=== PATIENT | female | born 1990 | race Caucasian/White ===

== ENCOUNTER 2016-05-19 06:59 | Inpatient (IN) | payer OTHER ==
[2016-05-19] MEDS ORDERED: Ampicillin 2 GM in Sodium Chloride 0.9% 100 ML IV ONE (08:06)
[2016-05-19] MEDS: Lactated Ringers 1,000 ML IV SCH ×2 (08:35→15:14)
[2016-05-19] MEDS ORDERED: Oxytocin 10 UNIT in Sodium Chloride 0.9% 1,000 ML IV SCH (09:15)
[2016-05-19] MEDS: Ampicillin 1 GM in Sodium Chloride 0.9% 50 ML IV SCH ×3 (12:16→20:38)
--- NOTE | 2016-05-19 17:27 | PCM.LDHP ---
L&D History of Present Illness - General Date of Service: 05/19/16 Admit Problem/Dx: Patient Status Order with Admit Dx/Problem 05/19/16 07:11 Admission Status [Patient Status] [ADT] Routine 05/19/16 13:27 Admission Status [Patient Status] [ADT] Routine Admission Diagnosis/Problem Admission Diagnosis/Problem Source of Information: Patient History Limitations: Reports: No limitations - History of Present Illness Introduction:: 25 yo female,primigrivida admitted for induction of labor,post . She is GBS +. No tothe medical problems. 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 L&D Exam - Exam Exam: See Below - Vital Signs Vital Signs: Last Vital Signs Temp 97.8 F 05/19/16 13:31 Pulse 70 05/19/16 13:31 Resp 20 05/19/16 13:31 BP 128/85 05/19/16 13:31 Pulse Ox 97 05/19/16 13:31 Weight: 75.75 kg - OB Specific Contraction Duration (sec): 30-50 Contraction Frequency (min): 2-3 Contraction Intensity: Moderate - Lane Score Lane Score Cervix Position: Posterior Lane Score Consistency: Medium Lane Score Dilation: 3-[address] Score 's Station: -1 ,0 - Exam Quality Assessment: No: supplemental oxygen General: alert, oriented, cooperative. No: severe distress HEENT: PERRLA Neck: supple Lungs: Clear to auscultation, Normal respiratory effort Cardiovascular: regular rate, regular rhythm Abdomen: normal bowel sounds Rectal Exam: Normal exam Genitourinary: Normal external exam Back Exam: normal inspection, CVA tenderness (L) Extremities: normal inspection Neurological: cranial nerves intact Psychiatric: alert - Problem List (1) Post-dates SNOMED Code(s): 78492947 ICD Code: O48.0 - POST-TERM Status: Acute Current Visit: Yes (2) Elective induction of labor planned SNOMED Code(s): 722213212 ICD Code: [id number] - Status: Acute Current Visit: Yes Problem List Initiated/Reviewed/Updated: Yes Orders Last 24hrs: Active Orders 24 hr Category Date Time Status Admission Status [Patient Status] [ADT] Routine ADT 05/19/16 07:11 Active Admission Status [Patient Status] [ADT] Routine ADT 05/19/16 13:27 Active Communication Order [RC] ASDIRECTED Care 05/19/16 08:09 Active Communication Order [RC] ASDIRECTED Care 05/19/16 08:09 Active Communication Order [RC] ASDIRECTED Care 05/19/16 08:09 Active Communication Order [RC] ASDIRECTED Care 05/19/16 08:09 Active Notify Provider [RC] PRN Care 05/19/16 08:09 Active Notify Provider [RC] STAT Care 05/19/16 08:09 Active Vital Signs [RC] PER UNIT ROUTINE Care 05/19/16 08:09 Active Clear Liquid Diet [DIET] Diet 05/19/16 Dinner Active Ampicillin 1 gm Med 05/19/16 12:30 Active Sodium Chloride 0.9% [Normal Saline] 50 ml IV Q4H Dextrose 5%-0.9% NaCl [Dextrose 5%-Normal Saline] 1,000 Med 05/19/16 17:15 Ordered ml IV ASDIRECTED Oxytocin [Pitocin] 10 unit Med 05/19/16 09:15 Active Sodium Chloride 0.9% [Normal Saline] 1,000 ml IV TITRATE Medication Orders Oxytocin 10 unit/ Sodium (Chloride) 1,001 mls @ 12.01 mls/hr IV TITRATE CHELY; 2 MUNITS/MIN PRN Reason: Protocol Last Titration: 05/19/16 17:00 Dose: 11 munits/min, 66.06 mls/hr Titration: 05/19/16 15:40 Dose: 10 munits/min, 60.06 mls/hr Titration: 05/19/16 15:06 Dose: 8 munits/min, 48.04 mls/hr Titration: 05/19/16 14:34 Dose: 7 munits/min, 42.04 mls/hr Titration: 05/19/16 13:55 Dose: 6 munits/min, 36.03 mls/hr Titration: 05/19/16 13:20 Dose: 5 munits/min, 30.03 mls/hr Titration: 05/19/16 12:15 Dose: 4 munits/min, 24.02 mls/hr Titration: 05/19/16 11:29 Dose: 3 munits/min, 18.01 mls/hr Titration: 05/19/16 10:55 Dose: 2 munits/min, 12.01 mls/hr Titration: 05/19/16 10:05 Dose: 4 munits/min, 24.02 mls/hr Admin: 05/19/16 09:35 Dose: 2 munits/min, 12.01 mls/hr Ampicillin Sodium 1 gm/ Sodium (Chloride) 50 mls @ 100 mls/hr IV Q4H CHELY Last Admin: 05/19/16 16:23 Dose: 100 mls/hr Admin: 05/19/16 12:16 Dose: 100 mls/hr Dextrose/Sodium Chloride (Dextrose 5%-Normal Saline) 1,000 mls @ 125 mls/hr IV ASDIRECTED CHELY Assessment/Plan Comment:: Clear liquid diet. D5 NS.Pitocin.
[2016-05-19] MEDS: Dextrose 5%-0.9% NaCl 1,000 ML IV SCH ×2 (17:30→22:52)
[2016-05-19] MEDS ORDERED: Nalbuphine 10 MG/1 ML Vial IVPUSH PRN (19:35)
[2016-05-19] MEDS ORDERED: Ampicillin 1 GM Vial ONE (20:24)
[2016-05-19] MEDS ORDERED: fentaNYL 300 MCG in Ropivacaine 200 ML EPIDUR ONE (21:59)
[2016-05-19] MEDS ORDERED: fentaNYL 100 MCG/2 ML SDV EPIDUR ONE (21:59)
[2016-05-19] MEDS ORDERED: Promethazine 25 MG/ML SDV IV PRN (22:50)
[2016-05-19] MEDS ORDERED: diphenhydrAMINE 50 MG/ML SDV IVPUSH PRN (22:50)
[2016-05-19] MEDS ORDERED: Ondansetron 4 MG/2 ML SDV IVPUSH PRN (22:50)
[2016-05-19] MEDS ORDERED: Naloxone 0.4 MG/ML SDV IVPUSH PRN (22:50)
[2016-05-19] MEDS ORDERED: ePHEDrine 50 MG/ML SDV IVPUSH PRN (22:50)
[2016-05-19] MEDS ORDERED: Naloxone 0.4 MG in Sodium Chloride 0.9% 100 ML IV PRN (22:50)
[2016-05-20] MEDS ORDERED: hydrOXYzine HCl 50 MG/ML SDV IM PRN ×2 (00:02)
[2016-05-20] MEDS: Ampicillin 1 GM in Sodium Chloride 0.9% 50 ML IV SCH ×3 (00:51→09:41)
[2016-05-20] MEDS ORDERED: Scopolamine 1.5 MG Transdermal Patch TOP ONE (07:27)
[2016-05-20] MEDS ORDERED: Citric Acid/Sodium Citrate Solution 30 ML Cup PO ONE (07:27)
[2016-05-20] MEDS ORDERED: Scopolamine 1.5 MG Transdermal Patch ONE (07:38)
[2016-05-20] MEDS ORDERED: Citric Acid/Sodium Citrate Solution 30 ML Cup ONE (07:39)
[2016-05-20] MEDS ORDERED: Ondansetron 4 MG/2 ML SDV IVPUSH ONE (07:45)
[2016-05-20] MEDS ORDERED: fentaNYL 100 MCG/2 ML SDV IV ONE (07:45)
[2016-05-20] MEDS ORDERED: Morphine PF 10 MG/10 ML SDV EPIDUR ONE (07:45)
[2016-05-20] MEDS ORDERED: CHLOROPROCAINE EPIDUR ONE (07:45)
[2016-05-20] MEDS ORDERED: Lactated Ringers 1,000 ML IV ONE (07:45)
[2016-05-20] MEDS ORDERED: Oxytocin 10 Units/1 ML SDV IV ONE ×2 (07:45)
--- NOTE | 2016-05-20 07:51 | PCM.PNLD ---
Labor Progress Note - VS & Meds Vital Signs: Last Vital Signs Temp 98.0 F 05/20/16 06:43 Pulse 66 05/19/16 22:35 Resp 20 05/19/16 22:35 BP 134/81 05/19/16 22:35 Pulse Ox 100 05/19/16 22:44 Active Medications: Current Medications Diphenhydramine HCl (Benadryl) 25 mg IVPUSH ASDIRECTED PRN PRN Reason: PRURITUS Ephedrine Sulfate (Ephedrine Sulfate) 5 mg IVPUSH ASDIRECTED PRN PRN Reason: HYPOTENSION Hydroxyzine HCl (Vistaril) 25 - 50 mg IM Q6H PRN PRN Reason: PRURITUS Hydroxyzine HCl (Vistaril) 25 - 50 mg IM Q4H PRN PRN Reason: N/V Oxytocin 10 unit/ Sodium (Chloride) 1,001 mls @ 12.01 mls/hr IV TITRATE CHELY; 2 MUNITS/MIN PRN Reason: Protocol Last Titration: 05/20/16 07:03 Dose: 0 munits/min, 0 mls/hr Ampicillin Sodium 1 gm/ Sodium (Chloride) 50 mls @ 100 mls/hr IV Q4H CHELY Last Admin: 05/20/16 04:20 Dose: 100 mls/hr Dextrose/Sodium Chloride (Dextrose 5%-Normal Saline) 1,000 mls @ 125 mls/hr IV ASDIRECTED CHELY Last Admin: 05/19/16 22:52 Dose: 125 mls/hr Naloxone HCl 0.4 mg/ Sodium (Chloride) 101 mls @ 25 mls/hr IV ASDIRECTED PRN PRN Reason: PER ORDER OF ANESTHESIA Nalbuphine HCl (Nubain) 10 mg IVPUSH Q3H PRN PRN Reason: Pain (severe 7-10) Last Admin: 05/19/16 19:50 Dose: 10 mg Naloxone HCl (Narcan) 0.1 mg IVPUSH ASDIRECTED PRN PRN Reason: RESPIRATORY STATUS Ondansetron HCl (Zofran) 4 mg IVPUSH Q6H PRN PRN Reason: NAUSEA/VOMITING Promethazine HCl (Phenergan) 6.25 - 12.5 mg IV Q4H PRN PRN Reason: NAUSEA AND VOMITING Discontinued Medications Ampicillin Sodium (Ampicillin) Confirm Administered Dose 1 gm .ROUTE .STK-MED ONE Stop: 04/10/17 20:25 Last Admin: 05/19/16 20:38 Dose: Not Given Citric Acid/Sodium Citrate (Bicitra Solution) 30 ml PO ONETIME ONE Stop: 05/20/16 07:28 Citric Acid/Sodium Citrate (Bicitra Solution) Confirm Administered Dose 30 ml .ROUTE .STK-MED ONE Stop: 05/20/16 07:40 Ampicillin Sodium 2 gm/ Sodium (Chloride) 100 mls @ 200 mls/hr IV ONETIME ONE Stop: 05/19/16 08:35 Last Admin: 05/19/16 08:44 Dose: 200 mls/hr Lactated Ringer's (Ringers, Lactated) 1,000 mls @ 100 mls/hr IV ASDIRECTED CHELY Last Admin: 05/19/16 15:14 Dose: 100 mls/hr Scopolamine (Transderm-Scop) 1.5 mg TOP ONETIME ONE Stop: 05/20/16 07:28 Scopolamine (Transderm-Scop) Confirm Administered Dose 1.5 mg .ROUTE .STK-MED ONE Stop: 05/20/16 07:39 - Uterine Contractions Uterine Monitoring Mode: External [place] Contraction Frequency (min): 4-5 Contraction Duration (sec): 70-110 Contraction Intensity: Moderate to Strong Uterine Resting Tone: Soft - Monitoring Heart Rate (FHR) Baseline: 120 Heart Rate (FHR) Variability: Moderate (6-25 bmp) Accelerations: Present, 15x15 Decelerations: Late, Variable Strip Review: Category II - Vaginal Exam Dilation (cm): 10 Effacement (Percent): 100 Station: 0 Cervical Position: Anterior Sterile Vaginal Exam Performed By: Maria Fernanda Grey Vaginal Exam Comment: started to push. pt does not have effective pushing. will wait for epidural to wear off a bit. cathed for 400 ml - Labor Progress (Free Text) Labor Progress: Any pushes cause prolonged decelerations.I initially discussed with Dr Gordon- encourage to continue pushing as long as baby tolerates it. Contractions are mild,and spaced out.Any addition of Pit causes late decelerations. Zero station, a bit too high for me to try vacuum. A decition was made to continue with C section for failure to progress with a NRFHT
[2016-05-20] MEDS ORDERED: Azithromycin 500 MG in Sodium Chloride 0.9% 250 ML IV ONE (07:54)
[2016-05-20] MEDS ORDERED: Naloxone 0.4 MG/ML SDV IVPUSH PRN (08:33)
[2016-05-20] MEDS ORDERED: diphenhydrAMINE 50 MG/ML SDV IVPUSH PRN (08:33)
[2016-05-20] MEDS ORDERED: ePHEDrine 50 MG/ML SDV IVPUSH PRN (08:33)
[2016-05-20] MEDS ORDERED: Nalbuphine 10 MG/1 ML Vial IV PRN (10:30)
[2016-05-20] MEDS ORDERED: Ketorolac 15 MG/ML SDV IVPUSH PRN (10:33)
[2016-05-20] MEDS ORDERED: Morphine 2 MG/ML Syringe IVPUSH PRN (10:34)
[2016-05-20] MEDS: Lactated Ringers 1,000 ML IV SCH ×3 (10:54→20:03)
[2016-05-21] MEDS: Ibuprofen 600 MG Tab PO PRN ×3 (00:31→16:12)
[2016-05-21] MEDS: Lactated Ringers 1,000 ML IV SCH (05:33)
[2016-05-21] MEDS ORDERED: Acetaminophen/HYDROcodone 325-5 MG Tab PO PRN (07:58)
[2016-05-21] MEDS ORDERED: Polyethylene Glycol 3350 Powder 17 GM Packet PO PRN (08:01)
--- NOTE | 2016-05-21 08:01 | PCM.PNPP ---
- General Info Date of Service: 05/21/16 Admission Dx/Problem (Free Text): Patient Status Order with Admit Dx/Problem 05/19/16 07:11 Admission Status [Patient Status] [ADT] Routine 05/19/16 13:27 Admission Status [Patient Status] [ADT] Routine Admission Diagnosis/Problem Admission Diagnosis/Problem Functional Status: Reports: pain controlled, tolerating diet, incentive spirometry - Review of Systems General: Reports: No Symptoms HEENT: Reports: no symptoms Pulmonary: Reports: no symptoms Cardiovascular: Reports: No Symptoms Gastrointestinal: Reports: No symptoms Genitourinary: Reports: no symptoms Musculoskeletal: Reports: no symptoms Skin: Reports: no symptoms Neurological: Reports: No Symptoms Psychiatric: Reports: no symptoms - General Info Date of Service: 05/21/16 - Patient Data Vital Signs - most recent: Last Vital Signs Temp 98.7 F 05/21/16 00:00 Pulse 77 05/21/16 00:00 Resp 18 05/21/16 00:00 BP 113/62 05/21/16 00:00 Pulse Ox 96 05/21/16 00:00 Weight - most recent: 75.75 kg I&O - last 24 hours: Intake & Output 05/20/16 05/21/16 05/21/16 22:59 06:59 14:59 Intake Total 1469 3125 Output Total 2550 2300 Balance -1081 825 Lab Results - last 24 hrs: Laboratory Results - last 24 hr 05/21/16 Range/Units 06:09 WBC 11.2 (4.5-12.0) X10-3/uL RBC 3.61 (3.23-5.20) x10(6)uL Hgb 11.0 L (11.5-15.5) g/dL Hct 32.5 (30.0-51.3) % MCV 90.0 (80-96) fL MCH 30.4 (27.7-33.6) pg MCHC 33.8 (32.2-35.4) g/dL RDW 12.8 (11.5-15.5) % Plt Count 122 L (125-369) X10(3)uL Med Orders - Current: Current Medications Hydrocodone Bitart/Acetaminophen (Bunn 325-5 Mg) 1 tab PO Q4H PRN PRN Reason: Abdominal Pain Diphenhydramine HCl (Benadryl) 25 mg IVPUSH ASDIRECTED PRN PRN Reason: PRURITUS Diphenhydramine HCl (Benadryl) 25 mg IVPUSH Q6H PRN PRN Reason: Itching or Nausea Ephedrine Sulfate (Ephedrine Sulfate) 5 mg IVPUSH ASDIRECTED PRN PRN Reason: Other Hydroxyzine HCl (Vistaril) 25 - 50 mg IM Q4H PRN PRN Reason: N/V Oxytocin 10 unit/ Sodium (Chloride) 1,001 mls @ 12.01 mls/hr IV TITRATE CHELY; 2 MUNITS/MIN PRN Reason: Protocol Last Titration: 05/20/16 07:03 Dose: 0 munits/min, 0 mls/hr Dextrose/Sodium Chloride (Dextrose 5%-Normal Saline) 1,000 mls @ 125 mls/hr IV ASDIRECTED CHELY Last Admin: 05/19/16 22:52 Dose: 125 mls/hr Naloxone HCl 0.4 mg/ Sodium (Chloride) 101 mls @ 25 mls/hr IV ASDIRECTED PRN PRN Reason: PER ORDER OF ANESTHESIA Lactated Ringer's (Ringers, Lactated) 1,000 mls @ 125 mls/hr IV ASDIRECTED CHELY Last Admin: 05/21/16 05:33 Dose: 125 mls/hr Ibuprofen (Motrin) 600 mg PO Q6H PRN PRN Reason: Pain Last Admin: 05/21/16 00:31 Dose: 600 mg Ketorolac Tromethamine (Toradol) 15 mg IVPUSH Q6H PRN PRN Reason: BREAKTHROUGH PAIN Last Admin: 05/20/16 20:04 Dose: 15 mg Miscellaneous Information (Remove Patch) 1 ea TRDERM ONETIME ONE Stop: 05/21/16 09:01 Morphine Sulfate (Morphine) 2 mg IVPUSH Q1H PRN PRN Reason: BREAKTHROUGH PAIN Nalbuphine HCl (Nubain) 10 mg IVPUSH Q3H PRN PRN Reason: Pain (severe 7-10) Last Admin: 05/19/16 19:50 Dose: 10 mg Nalbuphine HCl (Nubain) 10 mg IV Q1H PRN PRN Reason: PRURITIS Naloxone HCl (Narcan) 0.1 mg IVPUSH ASDIRECTED PRN PRN Reason: RESPIRATORY STATUS Ondansetron HCl (Zofran) 4 mg IVPUSH Q6H PRN PRN Reason: NAUSEA/VOMITING Promethazine HCl (Phenergan) 6.25 - 12.5 mg IV Q4H PRN PRN Reason: NAUSEA AND VOMITING Discontinued Medications Ampicillin Sodium (Ampicillin) Confirm Administered Dose 1 gm .ROUTE .STK-MED ONE Stop: 05/19/16 20:25 Last Admin: 05/19/16 20:38 Dose: Not Given Citric Acid/Sodium Citrate (Bicitra Solution) 30 ml PO ONETIME ONE Stop: 05/20/16 07:28 Last Admin: 05/20/16 07:30 Dose: 30 ml Citric Acid/Sodium Citrate (Bicitra Solution) Confirm Administered Dose 30 ml .ROUTE .STK-MED ONE Stop: 05/20/16 07:40 Last Admin: 05/20/16 10:16 Dose: Not Given Ephedrine Sulfate (Ephedrine Sulfate) 5 mg IVPUSH ASDIRECTED PRN PRN Reason: HYPOTENSION Hydroxyzine HCl (Vistaril) 25 - 50 mg IM Q6H PRN PRN Reason: PRURITUS Ampicillin Sodium 2 gm/ Sodium (Chloride) 100 mls @ 200 mls/hr IV ONETIME ONE Stop: 05/19/16 08:35 Last Admin: 05/19/16 08:44 Dose: 200 mls/hr Lactated Ringer's (Ringers, Lactated) 1,000 mls @ 100 mls/hr IV ASDIRECTED [facility] Last Admin: 05/19/16 15:14 Dose: 100 mls/hr Ampicillin Sodium 1 gm/ Sodium (Chloride) 50 mls @ 100 mls/hr IV Q4H [facility] Last Admin: 05/20/16 09:41 Dose: Not Given Azithromycin 500 mg/ Sodium (Chloride) 250 mls @ 250 mls/hr IV ONETIME ONE Stop: 05/20/16 08:53 Last Admin: 05/20/16 09:42 Dose: Not Given Naloxone HCl (Narcan) 0.1 mg IVPUSH ASDIRECTED PRN PRN Reason: Respiratory Depression Stop: 05/20/16 08:34 Scopolamine (Transderm-Scop) 1.5 mg TOP ONETIME ONE Stop: 05/20/16 07:28 Last Admin: 05/20/16 07:30 Dose: 1.5 mg Scopolamine (Transderm-Scop) Confirm Administered Dose 1.5 mg .ROUTE .STK-MED ONE Stop: 05/20/16 07:39 Last Admin: 05/20/16 10:16 Dose: Not Given - Interaction Disposition, : Lambert in Room with Family Feeding: Breastfed Infant; Nursed Well. No: Attempted ; Nursed Fair/Poor Support Person: - Recovery Exam Fundal Tone: Firm Fundal Level: 1 Fingerbreadths Below Umbilicus Fundal Placement: Midline Lochia Amount: Small Lochia Color: Rubra/Red Perineum Description: Intact, Minimal Bruising/Swelling Episiotomy/Laceration: None Bladder Status: Indwelling Catheter in Place Urinary Elimination: Indwelling Catheter - Exam General: alert, oriented HEENT: Pupils equal Neck: supple Lungs: Clear to auscultation, Normal respiratory effort Cardiovascular: Regular Rate, Regular Rhythm Abdomen: bowel sounds present, soft, no tenderness, no distension Extremities: no edema Skin: warm, dry, intact Wound/Incisions: healing well Neurological: no new focal deficit Psy/Mental Status: alert, normal affect, normal mood - Problem List & Annotations (1) Post-dates SNOMED Code(s): 93968207 Code(s): O48.0 - POST-TERM Status: Acute Current Visit: Yes Qualifiers: Post-term type: 40-42 weeks gestation Qualified Code(s): O48.0 - Post-term (2) Elective induction of labor planned SNOMED Code(s): 522758384 Code(s): AKE6889 - Status: Acute Current Visit: Yes (3) Failed induction SNOMED Code(s): 99516923 Code(s): O61.9 - FAILED INDUCTION OF LABOR, UNSPECIFIED Status: Acute Current Visit: Yes (4) H/O section SNOMED Code(s): 321010844 Code(s): Z98.891 - HISTORY OF UTERINE SCAR FROM PREVIOUS SURGERY Status: Acute Current Visit: Yes - Problem List Review Problem List Initiated/Reviewed/Updated: Yes - My Orders Last 24 Hours: My Active Orders 05/20/16 08:33 Bedrest Bathroom Privileges [RC] ASDIRECTED Communication Order [RC] Per Unit Routine Communication Order [RC] Per Unit Routine Communication Order [RC] Per Unit Routine Intake and Output [RC] Q8H RT Incentive Spirometry [RC] Q4HWA Wound Care [RC] QSHIFT diphenhydrAMINE [Benadryl] 25 mg IVPUSH Q6H PRN ePHEDrine [ePHEDrine Sulfate] 5 mg IVPUSH ASDIRECTED PRN 05/20/16 08:34 Assess Uterine Involution [WOMSER] Per Unit Routine 05/20/16 08:45 Lactated Ringers [Ringers, Lactated] 1,000 ml IV ASDIRECTED 05/20/16 Dinner Clear Liquid Diet [DIET] 05/21/16 00:00 Ibuprofen [Motrin] 600 mg PO Q6H PRN 05/21/16 07:58 Urinary Catheter Removal [RC] Per Unit Routine Acetaminophen/HYDROcodone [Bunn 325-5 MG] 1 tab PO Q4H PRN Convert IV to Saline Lock [OM.PC] Stat 05/21/16 09:00 Remove Patch 1 ea TRDERM ONETIME ONE 05/21/16 Lunch Adult Diet [DIET] - Plan Plan:: Post op Day #1 Advance diet Remove Trejo,IV Start PRN Bunn Ambulate
--- NOTE | 2016-05-21 08:46 | OR ---
DATE OF DELIVERY: 05/20/2016 OPERATION PERFORMED: Primary section. PREOPERATIVE DIAGNOSES: 1. Failure to progress. 2. Non-reassuring heart tones. POSTOPERATIVE DIAGNOSIS: Cephalopelvic disproportion due to persistent occipital posterior position. LIF[employer] AND CRANES INSPECTOR: Dr. Aparicio. PERMIT: The patient and accepted the risks and benefits, specifically anesthetic risks, bleeding infection, and injury to the internal organs. PROCEDURE DETAILS: The patient was taken to the OR. Anesthesia was found to be adequate. She was draped and prepped in the usual sterile fashion. A Pfannenstiel incision was made in the lower abdominal segment, carried down to the rectus fascia. This was scored in the middle and carried laterally with Christensen scissors. The rectus fascia was tented from the muscle using Sandra clamps and then sharply dissected from the muscle. This was repeated in the inferior portion. The peritoneum was entered sharply, making sure not to injure the internal organs. A bladder blade was inserted and bladder reflection of the visceral peritoneum placed. An incision was made laterally in the lower uterine segment. This was extended in the caudad cephalad fashion with the surgeon's fingers. The baby's head was dislodged from the pelvis in the occipital posterior position, face upwards. Nuchal cord was encountered which was reduced and the baby's head delivered. The baby was gently wiped in the face. The cord was cut and clamped and handed to the waiting nurses. After obtaining cord blood, the placenta was extracted by traction and the uterus exteriorized. It was cleaned of all the clots and products of conception. The uterus incision was closed in 2 layers, the second imbricating the first one. There were no sites of bleeding. Afterwards, rectus fascia was closed. The Monica's and subcutaneous tissue were closed with a running 3-0 stitch. The count was correct x3 for sponges, needles, and instruments. Estimated blood loss about 500 mL. The product was a live female , vigorous, with scores of 9 and 9. Weight is pending at the time of this dictation. The mother received ampicillin during labor and azithromycin 500 mg p.o. within 60 minutes of the incision. /[id number] REMINGTON/JUANL
[2016-05-22 02:21] VITALS: BP 132/79
[2016-05-22] MEDS: Ibuprofen 600 MG Tab PO PRN ×2 (02:23→12:34)
--- NOTE | 2016-05-22 12:54 | PCM.PNPP ---
- General Info Date of Service: 05/22/16 Functional Status: Reports: pain controlled - Review of Systems General: Reports: No Symptoms HEENT: Reports: no symptoms Pulmonary: Reports: no symptoms Cardiovascular: Reports: No Symptoms Gastrointestinal: Reports: No symptoms Genitourinary: Reports: no symptoms Musculoskeletal: Reports: no symptoms Skin: Reports: no symptoms Neurological: Reports: No Symptoms Psychiatric: Reports: no symptoms - General Info Date of Service: 05/22/16 - Patient Data Vital Signs - most recent: Last Vital Signs Temp 98.0 F 05/22/16 00:00 Pulse 62 05/22/16 00:00 Resp 18 05/22/16 00:00 BP 132/79 05/22/16 00:00 Pulse Ox 97 05/22/16 00:00 Weight - most recent: 75.75 kg I&O - last 24 hours: Intake & Output 05/21/16 05/22/16 05/22/16 22:59 06:59 14:59 Intake Total 800 800 Balance 800 800 Med Orders - Current: Current Medications Hydrocodone Bitart/Acetaminophen (Innis 325-5 Mg) 1 tab PO Q4H PRN PRN Reason: Abdominal Pain Diphenhydramine HCl (Benadryl) 25 mg IVPUSH ASDIRECTED PRN PRN Reason: PRURITUS Diphenhydramine HCl (Benadryl) 25 mg IVPUSH Q6H PRN PRN Reason: Itching or Nausea Ephedrine Sulfate (Ephedrine Sulfate) 5 mg IVPUSH ASDIRECTED PRN PRN Reason: Other Hydroxyzine HCl (Vistaril) 25 - 50 mg IM Q4H PRN PRN Reason: N/V Oxytocin 10 unit/ Sodium (Chloride) 1,001 mls @ 12.01 mls/hr IV TITRATE CHELY; 2 MUNITS/MIN PRN Reason: Protocol Last Titration: 05/20/16 07:03 Dose: 0 munits/min, 0 mls/hr Dextrose/Sodium Chloride (Dextrose 5%-Normal Saline) 1,000 mls @ 125 mls/hr IV ASDIRECTED CHELY Last Admin: 05/19/16 22:52 Dose: 125 mls/hr Naloxone HCl 0.4 mg/ Sodium (Chloride) 101 mls @ 25 mls/hr IV ASDIRECTED PRN PRN Reason: PER ORDER OF ANESTHESIA Lactated Ringer's (Ringers, Lactated) 1,000 mls @ 125 mls/hr IV ASDIRECTED CHELY Last Admin: 05/21/16 05:33 Dose: 125 mls/hr Ibuprofen (Motrin) 600 mg PO Q6H PRN PRN Reason: Pain Last Admin: 05/22/16 12:34 Dose: 600 mg Ketorolac Tromethamine (Toradol) 15 mg IVPUSH Q6H PRN PRN Reason: BREAKTHROUGH PAIN Last Admin: 05/20/16 20:04 Dose: 15 mg Morphine Sulfate (Morphine) 2 mg IVPUSH Q1H PRN PRN Reason: BREAKTHROUGH PAIN Nalbuphine HCl (Nubain) 10 mg IVPUSH Q3H PRN PRN Reason: Pain (severe 7-10) Last Admin: 05/19/16 19:50 Dose: 10 mg Nalbuphine HCl (Nubain) 10 mg IV Q1H PRN PRN Reason: PRURITIS Naloxone HCl (Narcan) 0.1 mg IVPUSH ASDIRECTED PRN PRN Reason: RESPIRATORY STATUS Ondansetron HCl (Zofran) 4 mg IVPUSH Q6H PRN PRN Reason: NAUSEA/VOMITING Polyethylene Glycol (Miralax) 17 gm PO BEDTIME PRN PRN Reason: Constipation Promethazine HCl (Phenergan) 6.25 - 12.5 mg IV Q4H PRN PRN Reason: NAUSEA AND VOMITING Discontinued Medications Ampicillin Sodium (Ampicillin) Confirm Administered Dose 1 gm .ROUTE .STK-MED ONE Stop: 05/19/16 20:25 Last Admin: 05/19/16 20:38 Dose: Not Given Chloroprocaine HCl (Nesacaine-Mpf 3%) 30 ml EPIDUR .STK-MED ONE Stop: 05/20/16 07:46 Citric Acid/Sodium Citrate (Bicitra Solution) 30 ml PO ONETIME ONE Stop: 05/20/16 07:28 Last Admin: 05/20/16 07:30 Dose: 30 ml Citric Acid/Sodium Citrate (Bicitra Solution) Confirm Administered Dose 30 ml .ROUTE .STK-MED ONE Stop: 05/20/16 07:40 Last Admin: 05/20/16 10:16 Dose: Not Given Ephedrine Sulfate (Ephedrine Sulfate) 5 mg IVPUSH ASDIRECTED PRN PRN Reason: HYPOTENSION Fentanyl (Sublimaze) 100 mcg EPIDUR .STK-MED ONE Stop: 05/19/16 22:00 Fentanyl (Sublimaze) 100 mcg IV .STK-MED ONE Stop: 05/20/16 07:46 Hydroxyzine HCl (Vistaril) 25 - 50 mg IM Q6H PRN PRN Reason: PRURITUS Ampicillin Sodium 2 gm/ Sodium (Chloride) 100 mls @ 200 mls/hr IV ONETIME ONE Stop: 05/19/16 08:35 Last Admin: 05/19/16 08:44 Dose: 200 mls/hr Lactated Ringer's (Ringers, Lactated) 1,000 mls @ 100 mls/hr IV ASDIRECTED CHELY Last Admin: 05/19/16 15:14 Dose: 100 mls/hr Ampicillin Sodium 1 gm/ Sodium (Chloride) 50 mls @ 100 mls/hr IV Q4H [facility] Last Admin: 05/20/16 09:41 Dose: Not Given Azithromycin 500 mg/ Sodium (Chloride) 250 mls @ 250 mls/hr IV ONETIME ONE Stop: 05/20/16 08:53 Last Admin: 05/20/16 09:42 Dose: Not Given Fentanyl 300 mcg/ Ropivacaine 206 mls @ as directed EPIDUR .STK-MED ONE Stop: 05/19/16 22:00 Lactated Ringer's (Ringers, Lactated) 1,000 mls @ as directed IV .STK-MED ONE Stop: 05/20/16 07:46 Miscellaneous Information (Remove Patch) 1 ea TRDERM ONETIME ONE Stop: 05/21/16 09:01 Last Admin: 05/21/16 09:00 Dose: 1 ea Morphine Sulfate (Duramorph Pf) 4 mg EPIDUR .STK-MED ONE Stop: 05/20/16 07:46 Naloxone HCl (Narcan) 0.1 mg IVPUSH ASDIRECTED PRN PRN Reason: Respiratory Depression Stop: 05/20/16 08:34 Ondansetron HCl (Zofran) 4 mg IVPUSH .STK-MED ONE Stop: 05/20/16 07:46 Oxytocin (Pitocin) 20 unit IV .STK-MED ONE Stop: 05/20/16 07:46 Oxytocin (Pitocin) 10 unit IV .STK-MED ONE Stop: 05/20/16 07:46 Scopolamine (Transderm-Scop) 1.5 mg TOP ONETIME ONE Stop: 05/20/16 07:28 Last Admin: 05/20/16 07:30 Dose: 1.5 mg Scopolamine (Transderm-Scop) Confirm Administered Dose 1.5 mg .ROUTE .STK-MED ONE Stop: 05/20/16 07:39 Last Admin: 05/20/16 10:16 Dose: Not Given - Infant Interaction Disposition, : [place] in Room with Family Feeding: Breastfed Infant; Nursed Well. No: Attempted ; Nursed Fair/Poor Support Person: - Recovery Exam Fundal Tone: Firm Fundal Level: 1 Fingerbreadths Below Umbilicus Fundal Placement: Midline Lochia Amount: Small Lochia Color: Rubra/Red Perineum Description: Intact, Minimal Bruising/Swelling Episiotomy/Laceration: None Bladder Status: Indwelling Catheter in Place Urinary Elimination: Indwelling Catheter - Exam General: alert, oriented HEENT: Pupils equal Neck: supple Lungs: Clear to auscultation, Normal respiratory effort Cardiovascular: Regular Rate, Regular Rhythm Abdomen: bowel sounds present, soft, no tenderness, no distension Extremities: no edema Skin: warm, dry, intact Wound/Incisions: healing well Neurological: no new focal deficit Psy/Mental Status: alert, normal affect, normal mood - Problem List & Annotations (1) Post-dates SNOMED Code(s): 28124973 Code(s): O48.0 - POST-TERM Status: Acute Current Visit: Yes Qualifiers: Post-term type: 40-42 weeks gestation Qualified Code(s): O48.0 - Post-term (2) Elective induction of labor planned SNOMED Code(s): 279409008 Code(s): [id number] - Status: Acute Current Visit: Yes (3) Failed induction SNOMED Code(s): 14440313 Code(s): O61.9 - FAILED INDUCTION OF LABOR, UNSPECIFIED Status: Acute Current Visit: Yes (4) H/O section SNOMED Code(s): 230034362 Code(s): Z98.891 - HISTORY OF UTERINE SCAR FROM PREVIOUS SURGERY Status: Acute Current Visit: Yes - Problem List Review Problem List Initiated/Reviewed/Updated: Yes - Plan Plan:: Post op Day #=2 Doing well. Wants to go home
--- NOTE | 2016-05-23 04:44 | DISCH ---
DISCHARGE DATE: 05/22/2016 REASON FOR ADMISSION: 1. Induction of labor. 2. Postdatism. DISCHARGE DIAGNOSES: 1. Failed induction. 2. Cephalopelvic disproportion resulting in a delivery. CONSULTATIONS: None. PROCEDURES: She had primary on 05/20. POSTOPERATIVE COURSE: The patient did well postoperatively. Normal blood pressure and vital signs. Pain well controlled. Breast feeding. On discharge, the patient will take Tylenol or ibuprofen at home. Activity restrictions reviewed with the patient and she will see me in 6 weeks. I spent more than 35 minutes in discharge of the patient. /[id number] [place]/OPAL
== END 2016-05-22 13:55 | disposition home or self-care (01) | DRG 766 ==
LOC: FB.OB 06:59 → UNDOADMOB 06:59 → INTOOBSV 13:27 → OBSVTOIN 13:27 → FB.OB 05-20 08:04 → OBSVTOIN 05-20 08:04 → UNDODISIN 05-22 13:55
PROVIDERS: ADMIT Family Medicine; ATTEND Family Medicine
PROC: 10D00Z1 Extraction of Products of Conception, Low, Open Approach (ICD-10-PCS; principal; 2016-05-20)
PROC: 3E033VJ Introduction of Other Hormone into Peripheral Vein, Percutaneous Approach (ICD-10-PCS; 2016-05-20)
DX: O65.9 Obstructed labor due to maternal pelvic abnormality, unspecified (principal); O61.9 Failed induction of labor, unspecified; O48.0 Post-term pregnancy; O76 Abnormality in fetal heart rate and rhythm complicating labor and delivery; Z3A.40 40 weeks gestation of pregnancy; Z37.0 Single live birth
CPT/HCPCS: 36415; 85027; 88307; 94150; A9270-GY; J0290; J1885; J2270; J2300; J2400; J2405; J2590; J2795; J3010; J7030; J7040; J7050; J7120